=== PATIENT | female | born 1985 | race Caucasian/White ===

== ENCOUNTER 2019-04-19 19:50 | Inpatient (IN) | payer MEDICAID ==
[~2019-04-19] VITALS: Ht 149.9 cm; Wt 59.6 kg
[2019-04-19 19:35] VITALS: Ht 149.9 cm; Wt 59.6 kg
[2019-04-19 20:10] VITALS: BP 105/65; PULSE 105; RESP 18
[2019-04-19] MEDS ORDERED: LACTATED RINGER'S 1,000 ML IV PRN (23:05)
[2019-04-19] MEDS ORDERED: PREN-99 PO (23:18)
[2019-04-19] MEDS ORDERED: METHYLERGONOVINE 0.2 MG INJ IM PRN (23:30)
[2019-04-19] MEDS ORDERED: IBUPROFEN 600 MG TAB PO PRN (23:30)
[2019-04-19] MEDS ORDERED: LIDOCAINE 1% (MPF) 30 ML INJ INJ PRN (23:30)
[2019-04-19] MEDS ORDERED: BUTORPHANOL 2 MG INJ IV PRN ×2 (23:30)
[2019-04-19] MEDS ORDERED: MISOPROSTOL 200 MCG TAB PR PRN (23:30)
[2019-04-19] MEDS ORDERED: OXYTOCIN 30 UNITS/LR 500 ML IV SCH ×2 (23:30)
[2019-04-19] MEDS ORDERED: OXYTOCIN 30 UNITS/LR 500 ML IV PRN (23:30)
[2019-04-19] MEDS ORDERED: CARBOPROST 250 MCG INJ IM PRN (23:30)
[2019-04-20] MEDS: LACTATED RINGER'S 1,000 ML IV SCH ×4 (01:30→19:03)
[2019-04-20] MEDS: MISOPROSTOL 50 MCG CAPSULE PO SCH ×6 (02:43→21:00)
--- NOTE | 2019-04-20 05:30 | HP ---
Date/Time of Note Date/Time of Note DATE: 04/20/19 TIME: 05:25 OB - History Hx of Present Free Text/Dictation April 19, 2019 : 1 Para: 0 Care: Good Care Other Concerns: 34-year-old G1, P0 with IUP at 40 weeks and 1 day and postdates and good care with Dr. Tran, was sent from the clinic for induction of labor. She complains of contractions that worsened during observation in triage. She denies any leaking of fluid vaginal bleeding or decreased movement. Denies any headache, blurred vision, epigastric pain or right upper quadrant pain. She reported increased intensity of her contractions and desires to proceed with induction of labor. She was noted to have elevated one hour PG, but 3 hour GTT was normal. Past Family/Social History * Past Medical, Surgical, Family and Obstetric Histories reviewed from chart. Blood Type: O+ Rubella: immune RPR/VDRL: Negative GBS Status: Negative HBsAG: Negative OB Admission Exam Vital Signs Vital Signs Vital Signs Date Temp Pulse Resp B/P (MAP) Pulse Ox O2 O2 Flow FiO2 Time Delivery Rate 04/19/19 98.5 105 18 105/65 Room Air 20:10 (78) Physical Exam HEENT: WNL Heart: Rhythm Normal Lungs: Clear Abdomen: WNL Extremities: Normal Reflexes: Normal Cervical Dilatation: Fingertip Effacement: 0% Station: -3 Membranes: Intact Amniotic Fluid: Clear Heart Rate: 140's Accelerations: Accelerations Present Decelerations: No Decelerations Varibility: Moderate Contractions on Admission: 6-10 Minutes Apart Intensity: Moderate Last 72 hours Lab Results CBC & BMP 04/20/19 01:15 OB Assessment/Plan Other Assessment: IUP at 40 weeks and 1 day Postdates Contractions Patient desires labor induction. GBS negative. No complication noted during She had only elevated 1 hour glucose test and 3-hour GTT was negative Patient desires to proceed with induction Risk and benefit of induction discussed with the patient. Patient verbalized understanding. All questions were answered. SANDY LARIOS MD Apr 20, 2019 05:30
--- NOTE | 2019-04-20 06:43 | TRIAGE ---
OB Triage Datetime Report Generated by CPN: 04/20/2019 06:42 Datetime: 04/20/2019 05:45 Stage of : Labor Labor Evaluation Frequency: 2-5 Monitor Mode: External Duration (sec)2399: 40-100 Quality: Moderate Pattern: Normal: <= 5 Contractions in 10 Minutes Resting [place]: Relaxed Heart Rate FHR Baseline Rate: 135 Monitor Mode: External US FHR Baseline Changes: No Baseline Change Variability: Moderate 6-25 bpm Accelerations: 15X15 Decelerations: None Category: Category I Datetime: 04/20/2019 04:45 Stage of : Labor Labor Evaluation Frequency: 2-7 Monitor Mode: External Duration (sec)2399: 40-80 Quality: Moderate Pattern: Normal: <= 5 Contractions in 10 Minutes Resting [place]: Relaxed Heart Rate FHR Baseline Rate: 145 Monitor Mode: External US FHR Baseline Changes: No Baseline Change Variability: Moderate 6-25 bpm Accelerations: 15X15 Decelerations: None Category: Category I Datetime: 04/20/2019 03:45 Stage of : Labor Labor Evaluation Frequency: occasional Monitor Mode: External Duration (sec)2399: 50-90 Quality: Moderate Pattern: Normal: <= 5 Contractions in 10 Minutes Resting [place]: Relaxed Heart Rate FHR Baseline Rate: 145 Monitor Mode: External US FHR Baseline Changes: No Baseline Change Variability: Moderate 6-25 bpm Accelerations: 15X15 Decelerations: Variable Category: Category II Comments: points of loss of contact Datetime: 04/20/2019 03:25 Monitor Mode: External Monitor Mode: External US Datetime: 04/20/2019 02:44 Labor Evaluation Frequency: occasional Monitor Mode: External Quality: Mild Pattern: Normal: <= 5 Contractions in 10 Minutes Resting [place]: Relaxed Heart Rate FHR Baseline Rate: 145 Monitor Mode: External US FHR Baseline Changes: No Baseline Change Variability: Moderate 6-25 bpm Accelerations: 15X15 Decelerations: None Category: Category I Datetime: 04/20/2019 01:45 Stage of : Labor Assessment Type: Admission Assessment Vaginal Bleeding: None Maternal Assessment Level of Consciousness: Keenly Alert, Responsive DTR's/Clonus: DTRs 2+; No Clonus Headache: Denies Blurred Vision: No Respiratory Effort: Unlabored; Regular Rhythm; Equal Expansion Breath Sounds, Left: Clear and Equal Breath Sounds, Right: Clear and Equal Nausea/Vomiting: Denies RUQ Epigastric Pain: Denies Lower Extremities Edema: None Degree: None Upper Extremities Edema: None Degree: None Facial Edema: None Temperature Route: Oral Fall Risk Assessment History of Falling: (0) No Secondary Diagnosis: (0) No Ambulatory Aid: (0) Bedrest/Nurse Assist IV Therapy: (20) Yes Gait: (0) Normal/Bedrest/Immobile Mental Status: (0) Oriented to Own Ability Fall Score: 20 Fall Risk Score Definition: No Risk: No action required Labor Evaluation Frequency: 3-5 Monitor Mode: External Duration (sec)2399: 50-100 Quality: Mild Pattern: Normal: <= 5 Contractions in 10 Minutes Resting [place]: Relaxed Heart Rate FHR Baseline Rate: 150 Monitor Mode: External US Variability: Moderate 6-25 bpm Accelerations: 15X15 Decelerations: None Category: Category I Pain Assessment Pain Scale: 0 Membrane Status: Intact Datetime: 04/20/2019 00:57 Monitor Mode: External Monitor Mode: External US Datetime: 04/20/2019 00:00 Time of Arrival: 04/20/2019 00:00 EGA: 40.1 Arrived By: Ambulatory Arrived From: Triage Datetime: 04/19/2019 20:32 Vaginal Exam Dilatation (cms): 0.0 Effacement (%): 0 Station: -3 Exam By: dr. long Membrane Status: Intact Cervix, Consistency: Soft Cervix, Position: Midposition Datetime: 04/19/2019 20:14 Monitor Mode: External Datetime: 04/19/2019 20:11 Time of Arrival: 04/19/2019 19:35 EGA: 40.1 Arrived By: Ambulatory Arrived From: Home Chief Complaint: sent from the clinic for NST. Movement: Present Contractions: Denies/Absent Rupture of Membranes: Denies Vaginal Bleeding: None Vaginal Discharge: Present Recent Sexual Intercouse: Denies Abdominal Trauma: Not Applicable Patient Complaints: None Time Provider Notified: 04/20/2019 20:52 Provider Notified: RIC Initial Plan: NST, SVE, CALL MD Datetime: 04/19/2019 20:10 Arrived From: Home Movement: Present Datetime: 04/19/2019 20:06 Monitor Mode: External Monitor Mode: External US
[2019-04-20] MEDS ORDERED: OXYTOCIN 30 UNITS/LR 500 ML IV SCH (14:00)
[2019-04-21] MEDS: LACTATED RINGER'S 1,000 ML IV SCH ×3 (03:45→22:05)
--- NOTE | 2019-04-21 12:13 | QN ---
Documentation Comment 40+wks No cervical change after 2 days, vs c/s dicussed with the patient ,risks and benfis of each dicussed The patient prefers to try the induction NST reactive --->Paitent will rest for few overs and then the process will be started again SO RON M.D. Apr 21, 2019 12:13
[2019-04-21] MEDS ORDERED: MISOPROSTOL 50 MCG CAPSULE VAG SCH (13:00)
[2019-04-21] MEDS: MISOPROSTOL 50 MCG CAPSULE PO SCH ×3 (14:09→22:05)
[2019-04-22] MEDS: MISOPROSTOL 50 MCG CAPSULE PO SCH ×3 (02:02→09:00)
[2019-04-22] MEDS: LACTATED RINGER'S 1,000 ML IV SCH ×2 (05:58→16:11)
--- NOTE | 2019-04-22 11:41 | PREAC ---
Date/Time of Note Date/Time of Note DATE: 04/22/19 TIME: 11:40 Anesthesia Eval and Record Evaluation Time Pre-Procedure Interview DATE: 04/22/19 TIME: 11:40 Age 34 Sex female NPO: 8 hrs Preoperative diagnosis intrauterine Planned procedure labor epidural Past Medical History Past Medical History: Includes : : (1), Para: (0) Surgery & Anesthesia Issues No known issue Meds Anticoagulation: No Beta Kan within 24 hr: No Reason Beta Kan not given: Pt. not on B-Kan Reported Medications Vit #76/Iron,Carb/FA (Pnv 29-1 Tablet) 1 Each Tablet, 1 EACH PO, TAB 04/19/19 Current Medications Lactated Ringer's 1,000 ml @ 125 mls/hr Q8H IV Last administered on 04/22/19at 05:58; Admin Dose 125 MLS/HR; Start 04/19/19 at 23:05 Butorphanol Tartrate (Stadol) 1 mg Q2H PRN IV .PAIN SCALE 1-5; Start 04/19/19 at 23:30 Butorphanol Tartrate (Stadol) 2 mg Q2H PRN IV .PAIN SCALE 6-10 Last administered on 04/21/19at 03:47; Admin Dose 2 MG; Start 04/19/19 at 23:30 Lidocaine (Xylocaine 1% (Mpf)) 30 ml ONCE PRN INJ .EPISIOTOMY; Start 04/19/19 at 23:30 Oxytocin/Lactated Ringer's 500 ml @ 500 mls/hr ONCE POST IV ; Start 04/19/19 at 23:30 Oxytocin/Lactated Ringer's 500 ml @ 125 mls/hr POST IV ; Start 04/19/19 at 23:30 Ibuprofen (Motrin) 600 mg ONCE PRN PO .PAIN 1-5; Start 04/19/19 at 23:30 Lactated Ringer's 1,000 ml @ 2,000 mls/hr Q30M PRN IV .ANESTHESIA Last administered on 04/22/19at 10:48; Admin Dose 2,000 MLS/HR; Start 04/19/19 at 23:05 Oxytocin/Lactated Ringer's 500 ml @ 0 mls/hr ONCE PRN IV .VAGINAL BLEEDING; Start 04/19/19 at 23:30 Methylergonovine Maleate (Methergine) 0.2 mg ONCE PRN IM .VAGINAL BLEEDING; Start 04/19/19 at 23:30 Carboprost Tromethamine (Hemabate) 250 mcg ONCE PRN IM .VAGINAL BLEEDING; Start 04/19/19 at 23:30 Misoprostol (Cytotec) 1,000 mcg ONCE PRN [place] .VAGINAL BLEEDING; Start 04/19/19 at 23:30 Meds reviewed: Yes Allergies Coded Allergies: No Known Allergy (Unverified , 04/19/19) Allergies Reviewed: Yes Labs/Studies Labs Reviewed: Reviewed by anesthesiologist Result Diagram: 04/20/19 0115 test: N/A Pre-procedure Exam Last vitals Vital Signs Date Temp Pulse Resp B/P (MAP) Pulse Ox O2 O2 Flow FiO2 Time Delivery Rate 04/19/19 98.5 105 18 105/65 Room Air 20:10 (78) Airway: Adequate mouth opening, Adequate thyromental dist Mallampati: Mallampati II Teeth: Normal Lung: Normal Heart: Normal ASA Physical Status ASA physical status: 2 Emergency: None Planned Anesthetic Neuraxial: Epidural Planned Pain Management Epidural Pre-operative Attestations Prior to commencing anesthesia and surgery, the patient was re-evaluated, there was verification of: *The patient's identity *The results of appropriate recent lab work and preoperative vital signs *The above evaluation not changing prior to induction *Anesthetic plan, risk benefits, alternative and complications discussed with patient/family; questions answered; patient/family understands, accepts and wishes to proceed. BONNIE ALDRICH MD Apr 22, 2019 11:41
[2019-04-22] MEDS ORDERED: NALOXONE (0.4 MG/ML) INJ IV PRN (12:00)
[2019-04-22] MEDS ORDERED: ONDANSETRON 4 MG INJ IV PRN (12:00)
[2019-04-22] MEDS ORDERED: DIPHENHYDRAMINE 50 MG INJ IV PRN (12:00)
--- NOTE | 2019-04-22 13:03 | PAC ---
Date/Time of Note Date/Time of Note DATE: 04/22/19 TIME: 13:03 Post-Anesthesia Notes Post-Anesthesia Note Last documented vital signs Vital Signs Date Temp Pulse Resp B/P (MAP) Pulse Ox O2 O2 Flow FiO2 Time Delivery Rate 04/19/19 98.5 105 18 105/65 Room Air 20:10 (78) Activity: WNL Respiratory function: WNL Cardiovascular function: WNL Mental status: Baseline Pain reasonably controlled: Yes Hydration appropriate: Yes Nausea/Vomiting absent: Yes Comments BP: 102/64 HR: 65 RR: 15 T: 98.5 SaO2: 99% BONNIE ALDRICH MD Apr 22, 2019 13:03
[2019-04-22] MEDS ORDERED: OXYTOCIN 30 UNITS/LR 500 ML IV SCH (14:00)
[2019-04-22] MEDS: FENTAnyl 2MCG/ML-ROPIV 0.2% 100 ML BAG EPI SCH (20:37)
[2019-04-23] MEDS: LACTATED RINGER'S 1,000 ML IV SCH ×2 (01:34→09:14)
[2019-04-23] MEDS: FENTAnyl 2MCG/ML-ROPIV 0.2% 100 ML BAG EPI SCH ×2 (04:24→10:05)
--- NOTE | 2019-04-23 13:06 | LDN ---
Date/Time of Note Date/Time of Note DATE: 04/23/19 TIME: 13:05 Delivery Summary 40+ Assisted Vaginal Delivery: Vacuum (x2 attempts) Placenta Delivered: Spontaneously Meconium: Thick Episiotomy: No Perineal laceration: 2 Anesthesia type: Epidural Estimated blood loss: 200 Sponge & Needle done & correct: Yes All needle counts correct: Yes Any foreign bodies felt in the: No Infant Delivery Information Sex Sex: male Apgars 1 Minute: 8 5 Minute: 9 Suctioning Nose & mouth suctioned at sofia: Yes Delee suction performed: Yes Umbilical Cord Umbilical cord with: 3 Vessels Cord presentations: no nuchal cord Cord Blood was obtained: Yes Mother & Baby Disposition Disposition Mom & Baby to Maternity; Good: Yes Baby to NICU: No SO RON M.D. Apr 23, 2019 13:06
[2019-04-23 15:45] VITALS: BP 124/68; PULSE 72; RESP 18
[2019-04-23] MEDS ORDERED: OXYTOCIN 30 UNITS/LR 500 ML IV SCH (15:50)
[2019-04-23] MEDS ORDERED: OXYCODONE/ASPIRIN (4.88/325) TAB PO PRN (16:00)
[2019-04-23] MEDS ORDERED: LANOLIN HPA 1 PKT TOP PRN (16:00)
[2019-04-23] MEDS ORDERED: ZOLPIDEM 5 MG TAB PO PRN (16:00)
[2019-04-23] MEDS ORDERED: NACL 0.9% 3 ML SYG IV SCH (16:00)
[2019-04-23] MEDS ORDERED: METHYLERGONOVINE 0.2 MG INJ IM PRN (16:00)
[2019-04-23] MEDS ORDERED: CARBOPROST 250 MCG INJ IM PRN (16:00)
[2019-04-23] MEDS ORDERED: BENZOCAINE 20% 56 ML SPRAY TOP PRN (16:00)
[2019-04-23] MEDS ORDERED: OXYTOCIN 30 UNITS/LR 500 ML IV PRN (16:00)
[2019-04-23] MEDS ORDERED: MISOPROSTOL 200 MCG TAB PR PRN (16:00)
[2019-04-23] MEDS ORDERED: WITCH HAZEL/GLYCERIN PAD PR PRN (16:00)
[2019-04-23] MEDS: IBUPROFEN 600 MG TAB PO SCH ×2 (18:00→23:45)
[2019-04-23 19:55] VITALS: BP 99/57; PULSE 85; RESP 19
[2019-04-23 23:55] VITALS: BP 101/59; PULSE 89; RESP 19
[2019-04-24 03:55] VITALS: BP 96/52; PULSE 68; RESP 19
[2019-04-24] MEDS: IBUPROFEN 600 MG TAB PO SCH ×4 (05:54→23:42)
[2019-04-24 08:00] VITALS: BP 86/51; PULSE 69; RESP 17
[2019-04-24 11:41] VITALS: BP 93/50; PULSE 101; RESP 20
[2019-04-24 16:10] VITALS: BP 103/59; PULSE 80; RESP 20
[2019-04-24 19:50] VITALS: BP 99/57; PULSE 75; RESP 19
[2019-04-24] MEDS ORDERED: SENNA TAB PO ONE (21:30)
[2019-04-24] MEDS ORDERED: MAGNESIUM HYDROXIDE 30ML CUP PO ONE (21:30)
[2019-04-25 03:50] VITALS: BP 102/60; PULSE 77; RESP 19
[2019-04-25] MEDS: IBUPROFEN 600 MG TAB PO SCH ×2 (05:51→12:03)
--- NOTE | 2019-04-25 07:12 | DS ---
Date/Time of Note Date/Time of Note DATE: 04/25/19 TIME: 07:11 Discharge Summary Admission/Discharge Info Admit Date/Time Apr 19, 2019 at 22:55 Discharge Date/Time 04/25/2019 Discharge Diagnosis Patient Condition: Good Hospital Course uneventful Home Meds Reported Medications Vit #76/Iron,Carb/FA (Pnv 29-1 Tablet) 1 Each Tablet, 1 EACH PO, TAB 04/19/19 Primary Care Provider Care Physician No Primary Pending Labs Laboratory Tests Test 04/24/19 07:39 White Blood Count 14.1 10^3/ul (4.8-10.8) Red Blood Count 2.85 10^6/ul (4.20-5.40) Hemoglobin 8.9 g/dl (12.0-16.0) Hematocrit 25.7 % (37.0-47.0) Mean Corpuscular Volume 90.2 fl (82.0-101.0) Mean Corpuscular Hemoglobin 31.2 pg (29.0-33.0) Mean Corpuscular Hemoglobin Concent 34.6 g/dl (32.0-37.0) Red Cell Distribution Width 13.2 % (11.5-14.5) Platelet Count 181 10^3/UL (140-415) Mean Platelet Volume 12.1 fl (7.4-10.4) Immature Granulocytes % 0.600 % (0.001-0.429) Neutrophils % 82.5 % (39.0-77.0) Lymphocytes % 11.1 % (15.0-51.0) Monocytes % 5.0 % (0.0-11.0) Eosinophils % 0.6 % (0.0-7.0) Basophils % 0.2 % (0.0-2.0) Nucleated Red Blood Cells % 0.0 /100WBC (0.0-0.0) Immature Granulocytes # 0.090 10^3/ul (0.0-0.031) Neutrophils # 11.6 10^3/ul (1.6-7.5) Lymphocytes # 1.6 10^3/ul (0.8-2.9) Monocytes # 0.7 10^3/ul (0.3-0.9) Eosinophils # 0.1 10^3/ul (0.0-0.5) Basophils # 0.0 10^3/ul (0.0-0.1) Nucleated Red Blood Cells # 0.0 10^3/ul (0.0-0.0) SO RON M.D. Apr 25, 2019 07:12
--- NOTE | 2019-04-25 07:15 | QN ---
Documentation Comment Late Entry Note 04/24/2019 PPD#1 is stable afebrile tolerates Diet No VB +Flatus +Voids VS Stable Gen NAD Abd soft NT ND Genitalia No blood at perineum, --->Discharge Home SO RON M.D. Apr 25, 2019 07:15
[2019-04-25 08:00] VITALS: BP_SYST 100; BP_SYST 113; BP_DIAS 1; BP_DIAS 51; PULSE 60; PULSE 77; RESP 16
[2019-04-25] MEDS ORDERED: DIPHTH/TET/ACEL PERTUSS (ADULT) 0.5 ML VIAL IM* ONE (09:00)
[2019-04-25] MEDS ORDERED: NA PHOSPHATE/BIPHOS 133 ML ENEMA PR ONE (13:00)
--- NOTE | 2019-04-26 14:23 | DELSUM ---
Delivery Summary A-C Datetime Report Generated by CPN: 04/26/2019 14:23 DELIVERY PERSONNEL [employer] Controller: Jong, Margarita MATERNAL INFORMATION Delivery Anesthesia: Epidural Medications in Delivery: OXYTOCIN 30 MU IN 500 ML OF LR Delivery QBL (ml): 250 Placenta Cultured: No Maternal Complications: None LABOR SUMMARY EDC: 04/18/2019 00:00 No. Babies in Womb: 1 Attempted: No Labor Anesthesia: Epidural LABOR INFORMATION Reason for Induction: Postterm Onset of Labor: 04/22/2019 13:00 Complete Dilatation: 04/23/2019 10:23 Cervical Ripening Agents: Cytotec @ (Annotations: 50G) Group B Beta Strep: Negative Steroids Given: None Reason Steroids Not Administered: Not Applicable MEMBRANES Membranes Rupture Method: Spontaneous Amniotic Fluid Color: Light Meconium Amniotic Fluid Amount: Moderate Amniotic Fluid Odor: None STAGES OF LABOR Stage 1 hr: 21 Stage 1 min: 23 Stage 2 hr: 2 Stage 2 min: 25 Stage 3 hr: 0 Stage 3 min: 2 Total Time in Labor hr: 23 Total Time in Labor min: 50 VAGINAL DELIVERY Episiotomy: None Laceration Extension: Second Degree Laceration Type: Vaginal Laceration Repair: Yes Initial Vag Sponge Count: 15 Final Vag Sponge Count: 15 Initial Vag Sharps Count: 3 Final Vag Sharps Count: 3 Sponge Count Correct: Yes; Vaginal Sweep Performed BABY A INFORMATION Delivery Date/Time: 04/23/2019 12:48 Method of Delivery: Vaginal Born in Route : No : N/A Forceps: N/A Vacuum Extraction: Successful Shoulder Dystocia : N/A ASSISTED DELIVERY BABY A Indication for Assisted Delivery: BRADYCARDIA Vacuum Number of Pulls: 2 Vacuum Number of PopOffs: 0 Reduce Pressure btwn Ctx: Yes Vacuum Liaison Engineer: NIXON Total Time Vacuum Applied: 60-80 SHOULDER DYSTOCIA BABY A Delivery Date/Time: 04/23/2019 12:48 PRESENTATION/POSITION BABY A Presentation: Cephalic Cephalic Presentation: Vertex Vertex Position: Left Occipital Anterior Breech Presentation: N/A PLACENTA INFORMATION BABY A Placenta Delivery Time : 04/23/2019 12:50 Placenta Method of Delivery: Spontaneous Placenta Status: Delivered SCORES BABY A Heart Rate 1 min: >100 bpm Resp Effort 1 min: Good Cry Reflex Irritability 1 min: Cough/Sneeze/Pulls Away Muscle Tone 1 min: Active Motion Color 1 min: Blue/Pale Resuscitation Effort 1 min: Tactile Stimulation SCORE 1 MIN: 8 Heart Rate 5 min: >100 bpm Resp Effort 5 min: Good Cry Reflex Irritability 5 min: Cough/Sneeze/Pulls Away Muscle Tone 5 min: Active Motion Color 5 min: Body [place], Extremit Blue Resuscitation Effort 5 min: Tactile Stimulation SCORE 5 MIN: 9 INFANT INFORMATION BABY A Gestational Age at Delivery: 40.5 Gestational Status: Full Term- 39- 40.6 Weeks Outcome : Liveborn, with signs of life Infant Condition : Stable Sex: Male IDENTIFICATION/MEDS BABY A ID Band Number: [id number] ID Band Location: Right Leg; Left Arm Sensor Applied: Yes Sensor Number: [id number] Sensor Location : Cord Clamp Vitamin K Given : Not Given Erythromycin Given: Not Given WEIGHT/LENGTH BABY A Infant Birthweight (gm): 3287 Weight (lb): 7 Infant Weight (oz): 4 Length (in): 20.00 Length (cm): 50.80 CORD INFORMATION BABY A No. Cord Vessels: 3 Nuchal Cord : N/A Cord Blood Taken: Yes Suction: Mouth; Nose ASSESSMENT BABY A Infant Complications: Multiple Variable Decels Physical Findings at Delivery: Caput Succedaneum Infant Respirations: Appears Normal Ramp Agent/ALS Called : No Infant Care By: ALENA Transferred To: Nursery
== END 2019-04-25 13:35 | disposition home or self-care (01) | DRG 807 ==
LOC: OBT 19:50 → L-D 19:53 → OBT 22:55 → L-D 22:55 → PP1 04-23 15:48
PROVIDERS: ADMIT Obstetrics & Gynecology; ATTEND Obstetrics & Gynecology
PROC: 10D07Z6 Extraction of Products of Conception, Vacuum, Via Natural or Artificial Opening (ICD-10-PCS; principal; 2019-04-23)
PROC: 0KQM0ZZ Repair Perineum Muscle, Open Approach (ICD-10-PCS; 2019-04-23)
DX: O48.0 Post-term pregnancy (principal); O70.1 Second degree perineal laceration during delivery; Z3A.40 40 weeks gestation of pregnancy; Z37.0 Single live birth
CPT/HCPCS: 62322; 76815; 76816; 76818; 80307; 85025; 85610; 85730; 86592; 86850; 86900; 86901; 87340; 90715; 93971; 99464; G0463; J0595; J2590; J3010; J7120